=== PATIENT | female | born 1950 | race Caucasian/White ===

== ENCOUNTER 2016-09-22 08:22 | Outpatient (CLI) | payer MEDICARE, OTHER | END 2016-09-22 08:23 | LOC: LAB 08:22 | PROVIDERS: ATTEND Nurse Practitioner Family | DX: R05 Cough (principal) | CPT/HCPCS: 87070; 87102; 87116; 87206 ==

== ENCOUNTER 2018-01-27 09:24 | Emergency (ER) | payer MEDICARE, OTHER ==
--- NOTE | 2018-01-27 09:47 | ED Physician Documentation ---
Skin Rash - HISTORIAN Historian: patient - HPI Stated Complaint: Allergic Reaction to unknown Chief Complaint: Allergic Reaction Onset: minutes (30) Timing: still present Duration: persistent since Location: trunk, RUE, LUE, RLE, LLE, R axillary, L axillary Quality: itchy Identified Cause?: Yes (new perfume and wearing a new sweater ) Where: home Context: Food Exposure: none Context: Other Exposure: other (perfume and clothing ) Further Comments: yes (She reports she started about 30 min ago with a rash - not on face. but neck chest back arms legs and abdomen. She has not taken any OTC meds for the rash. She does not feel short on air. She does note after discussion she did use a new perfume today and her sweater is new. She has no other complaints) - ROS CONST: none CVS/RESP: none. denies: shortness of breath EYES/ENT: denies: eye redness, eye itching, sore throat MS/SKIN/LYMPH: rash - PAST HX Past History: other (restless leg and COPD ) Immunizations: UTD Allergies/Adverse Reactions: Allergies Allergy/AdvReac Type Severity Reaction Status Date / Time Sulfa (Sulfonamide AdvReac Unknown Fever Verified 01/27/18 09:45 Antibiotics) Home Medications: Ambulatory Orders Medication Instructions Recorded Citalopram Hydrobromide [Celexa] 40 mg PO D 01/27/18 Montelukast Sodium [Singulair] 10 mg PO D 01/27/18 Pramipexole Di-HCl [Mirapex] 0.125 mg PO D 01/27/18 - SOCIAL HX Smoking History: cigarettes Alcohol Use: none Drug Use: none - FAMILY HX Family History: none - VITAL SIGNS Vital Signs: Vital Signs Temp Pulse Resp BP Pulse Ox 98.3 F 78 18 112/67 97 01/27/18 09:25 01/27/18 18:29 01/27/18 18:29 01/27/18 18:29 01/27/18 09:25 - REVIEWED ASSESSMENTS Nursing Assessment Reviewed: Yes Vitals Reviewed: Yes Progress - Progress Progress: 1020: rash is improving. Plan discussed she is agreeable DG ED Results Lab/Radiology - Orders Orders: ED Orders Category Date Time Status Famotidine [Pepcid] Med 01/27/18 09:52 Discontinued 20 mg PO NOW ONE diphenhydrAMINE HCL [Benadryl] Med 01/27/18 09:51 Discontinued 50 mg PO NOW ONE methylPREDNISolone ACETATE [Depo-Medrol] Med 01/27/18 09:51 Discontinued 80 mg IM NOW ONE Skin Rash Physical Exam - EXAM General Appearance: no acute distress, alert Skin: warm,dry, other (red rash (no wheals) on bilateral arms and legs - trunk and abdomen mild redness on neck. No facial rash ) Location: generalized Character: erythematous. No: urticarial Symptoms: warmth. No: tenderness, swelling Extremities: non-tender, no edema EENT: eyes nml inspection, lips nml, gums nml, pharynx nml, other (dick noted at posterior pharynx (she reports she gets this frequently from her inhalers) ) Respiratory: no resp distress, chest non-tender, breath sounds normal CVS: reg. rate & rhythm, heart sounds nml Abdomen: non-tender, nml bowel sounds Neuro/Psych: oriented x3 Discharge Clincal Impression: Oral dick Allergic reaction Qualifiers: Encounter type: initial encounter Qualified Code(s): T78.40XA - Allergy, unspecified, initial encounter Referrals: Samantha Rodriguez, PRN [Primary Care Provider] - 2 Days Comments: 1. Medrol dose pack 4 mg - take as directed start 01.28.2018 2. Zantac 150 mg take 1 by mouth twice per day x 10 days 3. Diflucan 150 mg take 1 by mouth now 4. Continue antihistamine at home 5. Do not use the perfume again 6. Contact PCP for possible allergy testing 7. Return to ER for any concerns Condition: Stable Disposition: 01 HOME, SELF-CARE Decision to Admit: NO Date of Decison to Admit: 01/27/18 Decision Time: 10:21
[2018-01-27] MEDS: diphenhydrAMINE HCL 25 MG TABLET PO ONE (10:03)
[2018-01-27] MEDS: FAMOTIDINE 20 MG TABLET PO ONE (10:05)
[2018-01-27] MEDS: methylPREDNISolone ACETATE 80 MG/ML VIAL IM ONE (10:05)
[2018-01-27 18:35] VITALS: BP 112/67
== END 2018-01-27 10:33 | disposition home or self-care (01) ==
LOC: ED 09:24
DX: T78.40XA Allergy, unspecified, initial encounter (principal)
CPT/HCPCS: J1040; Q0163; 96372; 99282

== ENCOUNTER 2018-12-27 14:01 | Outpatient (CLI) | payer MEDICARE, OTHER ==
--- NOTE | 2018-12-27 15:13 | Diagnostic Imaging Report ---
PATIENT MR#: [id number] PATIENT PATIENT NAME: CONY KOTHARI DATE OF : 1950 REFERRING PHYSICIAN: Samantha Rodriguez EXAM DATE: 12/27/2018 ACCESSION NUMBER: [id number] EXAM DESCRIPTION: CHEST 2VIEW Exam: Chest two views. History: Cough. No previous studies are available for comparison. Lung stinson are well aerated without elmer consolidation or effusion. Heart size and mediastinal con tours are normal with atherosclerotic plaques seen in the aorta. An orthopedic plate and screw device is in position in the left clavicle. Impression: No elmer consolidation or effusion. Read by: Dr. Gary Medel Transcribed by: Transcribed Date: Electronically signed by: Dr. Gary Medel Date signed: 12/27/2018 3:12:33 PM
== END 2018-12-27 14:11 | disposition home or self-care (01) ==
LOC: RAD 14:01
PROVIDERS: ATTEND Nurse Practitioner Family
DX: R05 Cough (principal); R06.02 Shortness of breath
CPT/HCPCS: 71046